=== PATIENT | male | born 1965 | race Caucasian/White ===

== ENCOUNTER → 2017-05-04 | Outpatient (CLI) | payer OTHER ==
--- NOTE | ~2017-05-04 | EKG ---
[address] [address] ELECTROCARDIOGRAM REPORT Name: ABIGAIL GAR Room #: [facility]#: [id number] Admission: 05/04/17 Attend Phys: Beltran Hernandez MD Discharge: Date of : 67 Report #: [id number] THIS REPORT FOR: //name// [facility] Test Date: 2017-05-04 Test Time: 08:16:49 Pat Name: ABIGAIL GAR Department: Room: Gender: Sample Hand: KASHMIR : 1965 Requested By: Beltran Hernandez Order Number: [id number] MD: Ian Alcocer Measurements Intervals [place] Rate: 76 P: 17 VT: 134 QRS: 2 QRSD: 86 T: 34 QT: 372 QTc: 419 Interpretive Statements Sinus rhythm Normal tracing No previous ECG available for comparison Electronically Signed On 05-04-2017 16:03:23 GEOSPATIAL INFORMATION TECHNOLOGIST by Ian Alcocer [email or web address] <ELECTRONICALLY SIGNED> By: Ian Alcocer MD, [facility] 05/04/17 1603 0816 0816 Ian Alcocer MD, FAC /EPI
== END ==
LOC: LITH 07:37
DX: N20.0 Calculus of kidney (principal); Z79.899 Other long term (current) drug therapy